=== PATIENT | male | born 1945 ===

== ENCOUNTER 2023-04-08 07:45 | Inpatient (IN) ==
[2023-04-08 08:41] LABS: ABS Basophils 0.1 10^3/uL (0.0-0.1); ABS Eosinophils 0.1 10^3/uL (0.0-0.5); ABS Lymphocytes 2.1 10^3/uL (1.0-4.8); ABS Monocytes 0.6 10^3/uL (0.0-1.1); ABS Neutrophils 3.3 10^3/uL (1.5-7.6); Eosinophil % 1.4 %; Hematocrit 42.8 % (38-53); Hemoglobin 14.5 g/dL (13.2-16.3); Lymphocyte % 34.7 %; Mean Corpuscular Hemoglobin 30.1 pg (27-33); Mean Corpuscular Volume 88.6 fL (80-97); Mean Platelet Volume 7.2 fL (7.5-11.2); Nucleated Red Blood Cells % 0.1 %/100WBC (0.0-0.8); Platelet Count 171 10^3/uL (150-450); Red Blood Count 4.83 10^6/uL (4.06-5.63); White Blood Count 6.2 10^3/uL (3.6-10.2)
[2023-04-08 08:53] LABS: Activated Partial Thrombo Time 35.4 seconds (26.0-38.0); INR 1.31 (0.83-1.13)
[2023-04-08 08:59] LABS: Albumin 3.8 g/dL (3.2-5.2); Albumin/Globulin Ratio 1.1 (1-3); Calcium 9.1 mg/dL (8.6-10.3); Creatinine, Serum 0.77 mg/dL (0.67-1.17); Globulin 3.6 g/dL (2-4); Potassium 3.6 mmol/L (3.5-5.0); Total Protein 7.4 g/dL (6.4-8.9); eGFR CKD-EPI 93.4 (>60)
[2023-04-08] MEDS ORDERED: Ondansetron 4 mg VIAL 2 MG/ML 2 ml VIAL IV PRN (09:23)
[2023-04-08] MEDS ORDERED: Senna TAB 8.6 mg TAB PO PRN (09:23)
[2023-04-08] MEDS ORDERED: Polyethylene Glycol 3350 17 GM PACKET PO PRN (09:23)
[2023-04-08 10:58] LABS: HDL Cholesterol 33.9 mg/dL
[2023-04-08] MEDS ORDERED: Sulfur Hexaflouride MICROSPHR 25 MG VIAL ONE (12:14)
[2023-04-08 13:10] LABS: C Reactive Protein 6.88 mg/L (<8.01)
[2023-04-09 06:12] LABS: ABS Basophils 0.1 10^3/uL (0.0-0.1); ABS Eosinophils 0.1 10^3/uL (0.0-0.5); ABS Lymphocytes 2.1 10^3/uL (1.0-4.8); ABS Monocytes 0.6 10^3/uL (0.0-1.1); ABS Neutrophils 2.5 10^3/uL (1.5-7.6); ABS Nucleated RBC 0.01 10^3/ul; Eosinophil % 2.2 %; Hematocrit 41.1 % (38-53); Hemoglobin 14.4 g/dL (13.2-16.3); Lymphocyte % 39.5 %; Mean Corpuscular Hemoglobin 30.8 pg (27-33); Mean Corpuscular Volume 88.2 fL (80-97); Mean Platelet Volume 7.3 fL (7.5-11.2); Nucleated Red Blood Cells % 0.2 %/100WBC (0.0-0.8); Platelet Count 167 10^3/uL (150-450); Red Blood Count 4.66 10^6/uL (4.06-5.63); Red Cell Distribution Width 13.7 % (12-17); White Blood Count 5.4 10^3/uL (3.6-10.2)
[2023-04-09 06:43] LABS: Calcium 8.9 mg/dL (8.6-10.3); Creatinine, Serum 0.84 mg/dL (0.67-1.17); Magnesium 1.8 mg/dL (1.9-2.7); Potassium 3.6 mmol/L (3.5-5.0); eGFR CKD-EPI 90.9 (>60)
[2023-04-09 10:21] VITALS: BP 144/88
== END 2023-04-09 14:38 | disposition home or self-care (01) | DRG 66 ==
LOC: ED 07:45 → EDHOLD 09:23 → MEDTELE 10:40
PROVIDERS: ADMIT Internal Medicine; ATTEND Internal Medicine